=== PATIENT | female | born 1975 | race Two or more races ===

== ENCOUNTER 2024-09-13 23:15 | Emergency (ER) | payer OTHER, MEDICAID ==
[~2024-09-13] VITALS: Ht 160 cm; Wt 47.3 kg
[2024-09-13 23:19] VITALS: BP 131/53; PULSE 74; RESP 16; TEMP 98.2; O2SAT 98
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
[2024-09-14] MEDS: HYDROcodone-ACET 5/325MG TAB PO ONE (01:35)
[2024-09-14] MEDS: DexAMETHasone SOD PHOS 10MG/1ML VIAL INJ IM ONE (01:35)
[2024-09-14] MEDS: KETOROLAC TROMETH 60MG/2ML VIAL IM ONE (01:36)
== END 2024-09-14 02:00 | disposition home or self-care (01) ==
LOC: ER 23:15 → EDBD 23:15 → ER 09-14 01:52
DX: S70.01XA Contusion of right hip, initial encounter (principal); S70.11XA Contusion of right thigh, initial encounter; G43.909 Migraine, unspecified, not intractable, without status migrainosus; V43.52XA Car driver injured in collision with other type car in traffic accident, initial encounter; Y93.89 Activity, other specified; Y92.89 Other specified places as the place of occurrence of the external cause; Y99.8 Other external cause status
CPT/HCPCS: 73502; 96372; 99284; J1100; J1885